=== PATIENT | female | born 1945 | race Caucasian/White ===

== ENCOUNTER → 2016-12-17 | Outpatient (CLI) | payer OTHER, MEDICARE | LOC: FIMAGING 12:01 | PROVIDERS: ATTEND Internal Medicine | DX: Z12.31 Encounter for screening mammogram for malignant neoplasm of breast (principal) | CPT/HCPCS: G0202 ==

== ENCOUNTER → 2017-01-24 | Outpatient (CLI) | payer OTHER, MEDICARE | LOC: FIMAGING 08:07 | PROVIDERS: ATTEND Surgery | DX: K44.9 Diaphragmatic hernia without obstruction or gangrene (principal); K21.9 Gastro-esophageal reflux disease without esophagitis ==

== ENCOUNTER 2017-02-04 08:00 | Observation (INO) | payer OTHER, MEDICARE ==
[2017-02-04] MEDS ORDERED: cefOXitin SODIUM 2 GM in D5W 100 ML IV ONE (08:21)
--- NOTE | 2017-02-04 08:33 | PDHPUP ---
History & Physical Update H&P update statement: This history and physical update is based on an assessment of the patient which was completed after admission or registration (within 24 hours), but prior to the surgery/procedure. H&P update: H&P reviewed & patient examined, no change in patient's condition since H&P completed
[2017-02-04] MEDS ORDERED: LR 1,000 ML IV ONE (08:39)
[2017-02-04] MEDS ORDERED: LIDOCAINE 1% 2 ML INJ ID PRN (08:39)
[2017-02-04] MEDS ORDERED: CEFAZOLIN 2 GM/DEXTROSE/100 ML BAG IV ONE (08:54)
--- NOTE | 2017-02-04 09:08 | PDANEPAE ---
ANE History of Present Illness Reflux ANE Past Medical History - Cardiovascular History Hx Hypertension: Yes Hx Arrhythmias: No Hx Chest Pain: No Hx Coronary Artery / Peripheral Vascular Disease: No Hx CHF / Valvular Disease: Yes Hx Palpitations: No Cardiovascular History Comment: PVC'S AND PAC'S - Pulmonary History Hx COPD: No Hx Asthma/Reactive Airway Disease: No Hx Recent Upper Respiratory Infection: No Hx Oxygen in Use at Home: No Hx Sleep Apnea: No Sleep Apnea Screening Result - Last Documented: Negative - Neurologic History Hx Cerebrovascular Accident: No Hx Seizures: No Hx Dementia: No - Endocrine History Hx Diabetes: No - Renal History Hx Renal Disorders: No - Liver History Hx Hepatic Disorders: No - Neurological & Psychiatric Hx Hx Neurological and Psychiatric Disorders: Yes Neurological / Psychiatric History Comment: RIGHT HAND NUMB AND TINGLING IF SLEEP ON RIGHT SHOULDER. - Cancer History Hx Cancer: Yes Cancer History Comment: BASAL CELL REMOVED - Congenital Disorder History Hx Congenital Disorders: No - GI History Hx Gastrointestinal Disorders: Yes Gastrointestinal History Comment: REFLUX,GERD, HIATAL HERNIA AND DIVERTICULOSIS - Other Health History Other Health History: PT FOR LEFT HIP AND SCIATICA. - Chronic Pain History Chronic Pain: Yes (LEFT HIP) - Surgical History Prior Surgeries: 2010 LEFT FOOT NEUROMA REMOVED, BUNIONECTOMY WITH SCREW ANE Review of Systems Review of Systems: - Exercise capacity METS (RN): 4 METS ANE Patient History - Allergies Allergies/Adverse Reactions: erythromycin base Allergy (Verified 01/23/17 12:39) MOUTH SORES Iodinated Contrast- Oral and IV Dye Allergy (Verified 01/23/17 12:39) NSAIDS (Non-Steroidal Anti-Inflamma Allergy (Verified 01/23/17 12:39) HIVE - Home Medications Home medications: home medication list seen and reviewed Home Medications: Cetirizine [ZyrTEC 10 mg (*)] 10 mg PO HS PRN 11/10/15 [Last Taken 11/06/15] Herbals/Supplements -Info Only 1 ea PO DAILY 11/10/15 [Last Taken 01/28/17] Psyllium Husk (with Sugar) [Metamucil Packet] 1 each PO BID PRN 11/10/15 [Last Taken 11/07/15] Simvastatin [Zocor] 40 mg PO DAILY 11/10/15 [Last Taken 02/04/17] Spironolact/Hydrochlorothiazid [Spironolactone-Hctz 25-25 Tab] 1 each PO DAILY 11/10/15 [Last Taken 02/03/17] Aspirin [Aspirin 81mg (*)] 81 mg PO DAILY 01/23/17 [Last Taken Unknown] Carboxymethylcellulose 1% [Refresh Celluvisc (*)] 1 drop EACHEYE DAILY PRN 01/23 [Last Taken 02/02/17] Cholecalciferol Vit D3 [Vitamin D3 (*)] 1,000 units PO DAILY 01/23/17 [Last Taken Unknown] Docusate Sodium [Colace 100 MG (*)] 100 mg PO BID PRN 01/23/17 [Last Taken 02/03] Lisinopril [Zestril 10 mg (*)] 10 mg PO DAILY 01/23/17 [Last Taken 02/04/17] Ranitidine HCl [Zantac] 150 mg PO BID 01/23/17 [Last Taken 02/03/17] - NPO status NPO Since - Liquids (Date): 02/04/17 NPO Since - Liquids (Time): 05:30 NPO Since - Solids (Date): 02/03/17 NPO Since - Solids (Time): 19:00 - Smoking Hx Smoking Status: Former smoker - Family Anes Hx Family Hx Anesthesia Complications: NONE ANE Labs/Vital Signs - Vital Signs Blood Pressure: 134/70 Heart Rate: 74 Respiratory Rate: 16 O2 Sat (%): 99 Height: 170.18 cm Weight: 78.471 kg ANE Physical Exam - Airway Neck exam: FROM Mallampati Score: Class 2 Mouth exam: normal dental/mouth exam - Pulmonary Pulmonary: no respiratory distress - Cardiovascular Cardiovascular: regular rate and rhythym - ASA Status ASA Status: II ANE Anesthesia Plan Anesthesia Plan: general endotracheal anesthesia
[2017-02-04] MEDS ORDERED: BUPIVACAINE 0.5% 30 ML SDV ONE (09:09)
[2017-02-04] MEDS ORDERED: MIDAZOLAM 2 MG/2 ML VIAL IVP ONE (09:50)
[2017-02-04] MEDS ORDERED: fentaNYL 100 MCG/2 ML INJ ONE ×2 (09:56→12:18)
[2017-02-04] MEDS ORDERED: PROPOFOL 200 MG/20 ML VIAL ONE (09:56)
[2017-02-04] MEDS ORDERED: DEXAMETHASONE 4 MG/ML VIAL ONE (09:57)
[2017-02-04] MEDS ORDERED: ROCURONIUM 50 MG/5 ML VIAL ONE ×2 (09:57→11:21)
[2017-02-04] MEDS ORDERED: ONDANSETRON 4 MG/2 ML VIAL ONE (09:57)
[2017-02-04] MEDS ORDERED: LIDOCAINE 2% 5 ML SDV ONE (09:57)
[2017-02-04] MEDS ORDERED: PROMETHAZINE HCL 25 MG/ML INJ IVP PRN (11:41)
[2017-02-04] MEDS ORDERED: NALOXONE HCL 0.4 MG/ML INJ IVP PRN (11:41)
[2017-02-04] MEDS ORDERED: ONDANSETRON 4 MG/2 ML VIAL IVP PRN (11:41)
[2017-02-04] MEDS ORDERED: fentaNYL 100 MCG/2 ML INJ IVP PRN (11:41)
--- NOTE | 2017-02-04 11:59 | POSTANESTH ---
Post Anesthetic Evaluation Cardiovascular Status: Normal, Stable Respiratory Status: Normal, Stable Level of Consciousness/Mental Status: Alert and Oriented Pain Control: Adequate, Prn Tx Ordered Nausea/Vomiting Control: Adequate, Prn Tx Ordered Complications Possibly Related to Anesthesia: None Noted
--- NOTE | 2017-02-04 12:05 | POSTOPPROG ---
Post Op Note Date of Operation: 02/04/17 Surgeon: Brendan Lock Fire Sprinkler Installer: Becky Huff Anesthesiologist: Dr. Henderson Anesthesia: GET(General Endotracheal) Pre-op Diagnosis: GERD Post-op Diagnosis: GERD Procedure: DV fundoplication Inf/Abcess present in the surg proc area at time of surgery?: No EBL: Minimal
[2017-02-04] MEDS ORDERED: HYDROmorphONE/DILAUDID 1 MG/ML INJ ONE (12:27)
[2017-02-04] MEDS: HYDROmorphONE/DILAUDID 1 MG/ML INJ IVP PRN ×4 (12:27→21:21)
[2017-02-04] MEDS: ONDANSETRON 4 MG/2 ML VIAL IVP PRN ×3 (13:48→21:12)
[2017-02-04] MEDS ORDERED: LR 1,000 ML IV SCH (15:30)
[2017-02-04] MEDS ORDERED: DOCUSATE SODIUM 100 MG CAP PO PRN (16:12)
[2017-02-04] MEDS ORDERED: CARBOXYMETHYLCELLULOSE 1% 0.4 ML DROPERETTE EACHEYE PRN (16:12)
[2017-02-05 08:29] VITALS: RESP 20
[2017-02-05] MEDS ORDERED: LISINOPRIL 10 MG TAB PO SCH (09:00)
--- NOTE | 2017-02-05 09:01 | SOAPPROG ---
SOAP Progress Note Assessment/Plan: Assessment: Plan: 02/05/17 08:59 s/p lap fundoplication, doing well. Cont clears, HLIV. Trial po pain meds. D/ w patient and at length, questions answered. Subjective: Patient feels better, nausea markedly improved. Ambulating, voiding. Objective: Vital Signs Temp Pulse Resp BP Pulse Ox 36.8 C 75 20 109/62 91 L 02/05/17 08:00 02/05/17 08:00 02/05/17 08:00 02/05/17 08:00 02/05/17 08:00 02/04/17 02/05/17 02/06/17 05:59 05:59 05:59 Intake Total 1350 Output Total 20 Balance 1330 Alert, NAD RRR Abd soft, [employer] C/D/I ICD10 Worksheet Patient Problems: Problems Problem Status Onset GERD (gastroesophageal reflux disease) Acute - ICD10 Problem Qualifiers (1) GERD (gastroesophageal reflux disease)
[2017-02-05] MEDS: HYDROCODONE/APAP 5/325 TAB PO PRN ×2 (10:19→14:25)
--- NOTE | 2017-02-05 10:43 | ASMTCMCOM ---
CM Note CM Note Notes: Spoke w/RN, anticipate pt will dc home w/support of when medically stable. CM available for any changes. Date Signed: 02/05/2017 10:42 AM Electronically Signed By:More Abbasi RN
[2017-02-05 11:39] VITALS: BP 112/69; PULSE 71; TEMP 98.1; O2SAT 94
--- NOTE | 2017-02-05 12:45 | GOP ---
[f rep st] OPERATIVE REPORT DATE OF OPERATION: 02/04/2017 SURGEON: Toñito Lock MD DIRECTOR OF PLAYER PERSONNEL: Becky Huff CFA, whose presence was requested by me and medically necessary for the saf e and timely completion of this case. ANESTHESIA: General endotracheal. ANESTHESIOLOGIST: Teodoro Henderson MD PREOPERATIVE DIAGNOSIS: Gastroesophageal reflux disease. POSTOPERATIVE DIAGNOSIS: Gastroesophageal reflux disease. PROCEDURE PERFORMED: Robotic-assisted hiatal hernia repair and Toupet fundoplication. FINDINGS: The patient had a moderate hiatal hernia. No other lesions were identified. ESTIMATED BLOOD LOSS: 20 cc. INDICATIONS: 71-year-old female with a history of reflux. Risks and benefits of the procedure were d iscussed with the patient and her family, their questions were answered, and they wished to proceed. DESCRIPTION OF PROCEDURE: The patient was in the supine position initially. After the induction of a dequate general endotracheal anesthesia, the patient was moved to the modified lithotomy position. Th e patient was then prepped and draped in the standard surgical fashion. Marcaine 0.5% was injected th roughout the supraumbilical area for local anesthesia. An 8-mm incision was made and the abdominal wall was elevated. A Veress needle was inserted and after noting proper pressures, the abdomen was insufflated with carbon dioxide. An 8-mm trocar was placed and a camera followed. There was no apparent damage from trocar placement. Four more ports were place d, three 8-mm ports in the upper abdomen and one 5-mm port in the right mid abdomen. These were all p laced under direct vision after injecting 0.5% Marcaine for local anesthesia. The robot was then docked without difficulty. Robotic instruments were then used to perform the disse ction. The Harmonic scalpel was used to take down the gastrohepatic ligament. Dissection was then car ried over the esophagus exposing the right nigel. The dissection proceeded laterally and the superior portion of the esophagus and the left nigel were exposed. The vagus nerves were seen and preserved thr oughout the entire case. Next, the posterior window was opened using blunt dissection and the Harmoni c scalpel. Once this window was achieved, attention was turned to the short gastrics. A significant portion of the short gastric vessels was taken down using a Harmonic scalpel. This free d up the fundus in its entirety. The mediastinal dissection was then performed. This was carefully pe rformed using blunt dissection and minimal energy component. Once the entire visible portion of the e sophagus was freed and the gastroesophageal junction returned to the abdomen, the repair of the hiata l hernia ensued. Interrupted sutures of 3-0 silk were used to approximate the hiatus posteriorly. Nataliia ugh room was seen for the esophagus and an instrument tip. The fundus was then brought posteriorly to the esophagus and the wrap performed. Initial suture took bites of stomach, anterior esophagus, and stomach. Care was taken again to avoid the vagus nerve. Two more sutures of 3-0 silk were used to cre ate the wrap inferiorly. This was a loose floppy wrap. No other lesions were identified at this time. Good hemostasis was noted. The robot was then undocked. Trocars were removed under direct vision. The pneumoperitoneum was allow ed to escape. The wounds were thoroughly irrigated. The skin at all sites was closed using 4-0 Monocr yl in a subcuticular suture. Wounds were sterilely dressed and the patient was returned to the supine position and extubated. The patient was then taken to the PACU in stable condition. COMPLICATIONS: None. DRAINS: None. ADDENDUM: A partial wrap was completed posteriorly. The fundus was secured to the crura using 2-0 si lk sutures. The partial wrap was then completed by fixing the fundus to the esophagus on either side of the anterior surface of the esophagus. A loose floppy wrap was thus created. /[id number]/MODL
--- NOTE | 2017-02-06 09:23 | ASDISCHSUM ---
Discharge Information Plan Status:Home with No Needs Medically Cleared to Leave: Discharge Date:02/05/2017 04:16 PM CM D/C Disposition:Home, Routine, Self-Care ADT D/C Disposition:Home, Routine, Self-Care Projected Discharge Date:02/05/2017 04:16 PM Transportation at D/C:Family Discharge Delay Reason: Follow-Up Date:02/05/2017 04:16 PM Discharge Slot: Final Diagnosis: Placement Information Patient Contact Information Contact Name:ODILON Relationship: Address:[address] City:[place] Alternate Phone: [facility]/Zip Code:[place] Email: Financial Information Financial Class: Primary Plan Desc:MEDICARE OUTPATIENT Primary Plan Number:[id number] Secondary Plan Desc:[employer]/MDR SUPPLEMENT Secondary Plan Number:[id number] Assessment Information BC CM Progress Note CM Note CM Note Notes: Spoke w/RN, anticipate pt will dc home w/support of when medically stable. CM available for any changes. Date Signed: 02/05/2017 10:42 AM Electronically Signed By:More Abbasi RN Intervention Information Intervention Type:*SHARMAINE-Signed Date of Service:02/05/2017 09:36 AM Patient Type:Observation Staff Member:Joyce Sampson Hours: Discipline: Severity: Comment:
== END 2017-02-05 16:16 | disposition home or self-care (01) ==
LOC: F3N 08:00 → F3E 12:55
PROVIDERS: ADMIT Surgery; ATTEND Surgery
PROC: 0DV44ZZ Restriction of Esophagogastric Junction, Percutaneous Endoscopic Approach (ICD-10-PCS; principal; 2017-02-04 09:30)
DX: K21.9 Gastro-esophageal reflux disease without esophagitis (principal); K44.9 Diaphragmatic hernia without obstruction or gangrene; Z86.010 Personal history of colon polyps; I10 Essential (primary) hypertension; E78.00 Pure hypercholesterolemia, unspecified; Z87.891 Personal history of nicotine dependence
CPT/HCPCS: 43281; J0690; J0694; J1100; J1170; J2250; J2405; J2704; J3010

== ENCOUNTER → 2018-01-28 | Outpatient (CLI) | payer OTHER, MEDICARE | LOC: FIMAGING 13:56 | PROVIDERS: ATTEND Internal Medicine | DX: Z12.31 Encounter for screening mammogram for malignant neoplasm of breast (principal) ==

== ENCOUNTER → 2018-07-14 | Outpatient (CLI) | payer OTHER, MEDICARE ==
[~2018-07-14] MED LIST: IOPAMIDOL (ISOVUE-300) 100 ML BTL ONE
== END ==
LOC: FIMAGING 10:06
PROVIDERS: ATTEND Internal Medicine
DX: K22.8 Other specified diseases of esophagus (principal); N83.8 Other noninflammatory disorders of ovary, fallopian tube and broad ligament; K57.90 Diverticulosis of intestine, part unspecified, without perforation or abscess without bleeding
CPT/HCPCS: 74177; Q9967